=== PATIENT | female | born 1995 | race Caucasian/White ===

== ENCOUNTER 2021-05-06 16:56 | Inpatient (IN) | payer MEDICAID ==
[2021-05-06] VITALS (23 sets, daily range): BP systolic 90–161; BP diastolic 52–106; PULSE 63–103; TEMP 98.2–98.3
[~2021-05-06] VITALS: Ht 154.9 cm; Wt 89.5 kg
--- NOTE | 2021-05-06 17:00 | NUR ---
Patient arrives ambulatory sent over from office for evaluation after having elevated blood pressures at office visit. Prior orders per Dr. Snyder for labs, serial blood pressures, and EFM. Physician will come assess patient shortly. Patient denies contractions, leaking of fluid, or vaginal bleeding. Reports normal movement. Patient denies headache, visual changes, RUQ pain. Patient voids, labs obtained. Patient to bed and EFM explained and placed. 1722- IV placed in RW, labs obtained and saline locked. Assessment completed. Patient updated on plan of care.
[2021-05-06] MEDS ORDERED: PRILOSEC10 MG PO (17:18)
[2021-05-06] MEDS ORDERED: PRENATAL (17:18)
[2021-05-06 17:40] LABS: BASO % 0.3 % (0.0-2.0); EOS # 0.1 (0.0-0.7); EOS % 0.8 % (0-4.0); GRAN # 6.1 (1.4-6.5); GRAN % 67.6 % (42.2-75.2); HEMOGLOBIN 12.2 g/dl (12.5-16.0); LYMPH # 2.2 (1.2-3.4); LYMPH % 24.7 % (20.0-51.0); MEAN CELL VOLUME 87 fl (80.0-100.0); MEAN CORPUSCULAR HEMOGLOBIN 30 pg (27.0-31.0); MEAN CORPUSCULAR HGB CONC 34 g/dl (33.0-37.0); MEAN PLATELET VOLUME 11.6 fl (7.4-10.4); MONO # 0.5 (0.1-0.6); PLATELET COUNT 199 K/mm3 (130-400); RED BLOOD COUNT 4.06 M/mm3 (4.10-5.30); REDCELL DISTRIBUTION WIDTH-CV 12.8 % (11.5-14.5)
[2021-05-06 17:41] LABS: HEMATOCRIT 35.5 % (37.0-47.0)
[2021-05-06 17:50] LABS: MUCOUS Present /lpf; PH 6 (5-8); URINE APPEARANCE Cloudy; URINE BACTERIA Occasional /hpf; URINE BILIRUBIN Negative (NEGATIVE); URINE BLOOD Negative (NEGATIVE); URINE COLOR Yellow; URINE GLUCOSE Negative (NEGATIVE); URINE KETONE Negative (NEGATIVE); URINE LEUKOCYTE ESTERASE 3+ (NEGATIVE); URINE NITRATE Negative (NEGATIVE); URINE PROTEIN(semi-quant) 2+ (NEGATIVE); URINE UROBILINOGEN Negative (NEGATIVE)
[2021-05-06 17:51] LABS: ALBUMIN 3.4 gm/dL (3.5-5.0); BILIRUBIN,TOTAL 0.2 mg/dL (0.0-1.0); CALCIUM 9.1 mg/dL (8.4-10.2); CREATININE, serum 0.51 (0.52-1.25); POTASSIUM 3.6 mmol/L (3.4-5.0); TOTAL PROTEIN 6.7 gm/dL (6.4-8.2)
--- NOTE | 2021-05-06 18:10 | NUR ---
See physician notification. Report to Britney Gomes RN and Racquel Leal RN who assume care of patient at this time.
[2021-05-06 18:19] LABS: COLLECTION METHOD CLEAN CATCH
--- NOTE | 2021-05-06 18:20 | NUR ---
AT BEDSIDE DISCUSSING LAB RESULTS AND POTENTIAL NEED FOR DELIVERY THIS EVENING, PT TEARFUL BUT AGREEABLE TO POC. PT CALLING FAMILY TO DISCUSS POTENTIAL CSECTION THIS EVENING, WILL NOTIFY NURSE WHEN SHE HAS MADE HER FINAL DECISION.
--- NOTE | 2021-05-06 19:04 | NUR ---
AT BEDSIDE, PT AGREEABLE TO CSECTION AROUND 2100 TONIGHT, FOB IS ON HIS WAY, WILL ADMIT PT TO LABOR AND DELIVERY
--- NOTE | 2021-05-06 20:55 | NUR ---
PT AMBULATORY TO OR SUITE, SPINAL ANESTHESIA PLACED BY TANI LING ANCHORMAN, PT TOLERATED PROCEDURE WELL. ASSISTED ONTO BED, SMALL PLACED, SCD'S ON, PT PREPPED FOR SURGERY PER PROTOCOL. 2113: AROM PER 2113: DELIVERY OF VIABLE FEMALE AT THIS TIME, CARE ASSUMED BY GEOVANI MURO RN. 2114: DELIVERY OF PLACENTA. CORD BLOOD OBTAINED AND DELIVERED TO LAB PER PRTOCOL. 2204: PT TO PACU TO CONTINUE RECOVERY. FUNDUS FIRM AT UMBILICUS. LOCHIA WNL. NO CLOTS PRESENT. VITAL SIGNS STABLE. SMALL DRAINING CLEAR YELLOW URINE. SCD'S ON BLE AND RUNNING. PT FULLY ALERT AND ORIENTED. DENIES PAIN. DENIES NAUSEA. DENIES FURTHER QUESTIONS OR CONCERNS AT THIS TIME. MOTHER REMAINS IN STABLE CONDITION. WILL CONTINUE TO MONITOR PER PROTOCOL.
[2021-05-07] VITALS (7 sets, daily range): BP systolic 120–146; BP diastolic 82–91; PULSE 66–90; TEMP 97.5–98.3
--- NOTE | 2021-05-07 00:32 | NUR ---
REPORT TO CHING GONZALEZ RN
[2021-05-07 07:00] LABS: HEMOGLOBIN 11.2 g/dl (12.5-16.0)
--- NOTE | 2021-05-07 12:24 | NUR ---
stopped by and offered congrats to patient.
--- NOTE | 2021-05-07 14:59 | NUR ---
Patient refused covid testing.
[2021-05-08 08:00] VITALS: BP 134/86; PULSE 93; TEMP 98.3
--- NOTE | 2021-05-08 08:00 | NUR ---
Rests in bed, alert. Request pain medication. 814 Percocet 5/325 mg two given per request and as ordered.
[2021-05-08] MEDS ORDERED: IBU600 MG PO (09:39)
[2021-05-08] MEDS ORDERED: PERCOCET 325 MG1 TA2 PO (09:39)
--- NOTE | 2021-05-08 10:45 | NUR ---
Rests in chair, alert, visits with family. Ibuprofen 600 mg given as ordered.
--- NOTE | 2021-05-08 11:45 | NUR ---
Discharge instructions given, verbalizes understanding.
== END 2021-05-08 12:10 | disposition home or self-care (01) | DRG 788 ==
LOC: LDRO 16:56 → LDR 19:13 → OB 22:30
PROVIDERS: ADMIT Obstetrics & Gynecology
PROC: 10D00Z1 Extraction of Products of Conception, Low, Open Approach (ICD-10-PCS; principal; 2021-05-06)
DX: O34.211 Maternal care for low transverse scar from previous cesarean delivery (principal); Z3A.39 39 weeks gestation of pregnancy; Z37.0 Single live birth; O99.214 Obesity complicating childbirth; E66.9 Obesity, unspecified; O99.62 Diseases of the digestive system complicating childbirth; O14.04 Mild to moderate pre-eclampsia, complicating childbirth; K21.9 Gastro-esophageal reflux disease without esophagitis; O76 Abnormality in fetal heart rate and rhythm complicating labor and delivery
CPT/HCPCS: J0690; J1100; J1885; J2590; J7120